=== PATIENT | male | born 1970 | race Asian ===

== ENCOUNTER 2017-12-20 17:31 | Emergency (ER) | payer MEDICARE ==
[~2017-12-20] VITALS: Ht 167.6 cm; Wt 77.1 kg
[2017-12-20 17:31] VITALS: BP 158/98
[2017-12-20] MEDS ORDERED: SEROQUEL50 MG ORAL (17:34)
[2017-12-20] MEDS ORDERED: LAMICTAL25 MG ORAL (17:49)
--- NOTE | 2017-12-20 17:51 | Emergency Room Report ---
History of Present Illness General Chief Complaint: Suicidal Source: EMS (Shabana Robb) Present Illness HPI 46 year old male presents to the emergency department with suicidal ideation. Patient reports multiple PSAs the most recent of which was last week he attempted to swallow a tampon in hopes of choking himself. Patient prior to that was hospitalized for 3 weeks after attempted overdose on Seroquel. Patient has a history of schizophrenia, bipolar and depression. Patient states he is currently on Lamictal and Seroquel. He states he has been taking his medications consistently. Patient also reports some auditory hallucinations that he describes as "annoying "and states that he is unable to make out what they're saying. Patient denies taking more than prescribed of his medications today or attempts at overdose. He denies medical complaints at this time. Denies substance use, denies alcohol use. Denies HI or delusions. Denies hx of trauma or abuse. Denies experiencing flashbacks or nightmares. (Shabana Robb) Allergies: Coded Allergies: No Known Allergies (Unverified , 12/20/17) Patient History Past Medical History: see triage record, psych hx - schizophrenia Past Surgical History: none Pertinent Family History: none Reviewed Nursing Documentation: PMH: Agreed; PSxH: Agreed (Shabana Robb) Nursing Documentation-PMH Past Medical History: No History, Except For History Of Psychiatric Problem: Yes - mood disorder and schizoprenia (Shabana Robb) Review of Systems All Other Systems: negative except mentioned in HPI (Shabana Robb) Physical Exam Vital Signs Date Time Temp Pulse Resp B/P (MAP) Pulse Ox O2 Delivery O2 Flow Rate FiO2 12/20/17 17:31 98.3 92 20 158/98 99 Room Air 98.2 Sp02 EP Interpretation: reviewed, normal General Appearance: no apparent distress, alert, GCS 15, non-toxic, other - mildly desheveled. Head: normocephalic, atraumatic Eyes: bilateral eye normal inspection, bilateral eye PERRL ENT: hearing grossly normal, normal voice Neck: full range of motion, no bony tend Respiratory: chest non-tender, lungs clear, normal breath sounds, no accessory muscle use, no wheezing, speaking full sentences Cardiovascular #1: regular rate, rhythm Gastrointestinal: normal bowel sounds, non tender, soft Rectal: deferred Musculoskeletal: back normal, gait/station normal, normal range of motion, non- tender Neurologic: alert, oriented x3, responsive, motor strength/tone normal, sensory intact, normal gait, speech normal, grossly normal Psychiatric: anxious, other - Pt. reports SI, no plan at the moment, Pt. has clear speech, thought process is not linear. he keeps resorting back to specific remarks and not always answering questions, needs redirection durring conversation often. Skin: normal color, no rash, warm/dry, well hydrated, other - skin is scaly and pt. has multiple lipomas noted on arms and the back of his neck. no evidence of infections at this time, no open wounds. Lymphatic: no adenopathy (Shabana Robb) Medical Decision Making PA Attestation Dr. Gamble is my supervising Physician whom patient management has been discussed with. (Shabana Robb) Diagnostic Impression: Primary Impression: Bipolar disorder ER Course initially pt. is anxious and restless. however cooperative. Reports he had his dose of Seroquel today already. Ddx considered but are not limited to OD, SI/HI, psychosis, UTI, intoxication Vital signs: are WNL, pt. is afebrile H&PE are most consistent with behavioral/mental health issue ORDERS: -CBC, CMP: mild hyponatremia -UDS: Negative for all -Salicylates and Acetaminophen - no acute intoxication. -Serum ETOH: negative ED INTERVENTIONS: -Sitter at Bedside - 2mg Ativan PO -50mg Benadryl PO -NS Bolus IV - PET Consult DISPOSITION: Pt. Medically Cleared, and Awaiting PET EVAL Labs Test 12/20/17 17:30 12/20/17 19:17 Urine Opiates Screen Negative (NEGATIVE) Urine Barbiturates Screen Negative (NEGATIVE) Phencyclidine (PCP) Screen Negative (NEGATIVE) Urine Amphetamines Screen Negative (NEGATIVE) Urine Benzodiazepines Screen Negative (NEGATIVE) Urine Cocaine Screen Negative (NEGATIVE) Urine Marijuana (THC) Screen Negative (NEGATIVE) White Blood Count 8.3 K/UL (4.8-10.8) Red Blood Count 4.63 M/UL (4.70-6.10) Hemoglobin 14.0 G/DL (14.2-18.0) Hematocrit 39.2 % (42.0-52.0) Mean Corpuscular Volume 85 FL (80-99) Mean Corpuscular Hemoglobin 30.2 PG (27.0-31.0) Mean Corpuscular Hemoglobin Concent 35.6 G/DL (32.0-36.0) Red Cell Distribution Width 10.2 % (11.6-14.8) Platelet Count 261 K/UL (150-450) Mean Platelet Volume 5.5 FL (6.5-10.1) Neutrophils (%) (Auto) 70.6 % (45.0-75.0) Lymphocytes (%) (Auto) 21.8 % (20.0-45.0) Monocytes (%) (Auto) 4.2 % (1.0-10.0) Eosinophils (%) (Auto) 2.1 % (0.0-3.0) Basophils (%) (Auto) 1.4 % (0.0-2.0) Sodium Level 129 MMOL/L (136-145) Potassium Level 3.2 MMOL/L (3.5-5.1) Chloride Level 96 MMOL/L (98-107) Carbon Dioxide Level 23 MMOL/L (21-32) Anion Gap 10 mmol/L (5-15) Blood Urea Nitrogen 6 mg/dL (7-18) Creatinine 0.7 MG/DL (0.55-1.30) Estimat Glomerular Filtration Rate > 60 mL/min (>60) Glucose Level 121 MG/DL (74-106) Calcium Level 8.3 MG/DL (8.5-10.1) Total Bilirubin 0.4 MG/DL (0.2-1.0) Aspartate Amino Transf (AST/SGOT) 12 U/L (15-37) Alanine Aminotransferase (ALT/SGPT) 16 U/L (12-78) Alkaline Phosphatase 70 U/L (46-116) Total Protein 7.2 G/DL (6.4-8.2) Albumin 4.1 G/DL (3.4-5.0) Globulin 3.1 g/dL Albumin/Globulin Ratio 1.3 (1.0-2.7) Salicylates Level < 0.2 ug/mL (2.8-20) Acetaminophen Level < 2 MCG/ML (10-30) Serum Alcohol < 3 mg/dL (Shabana Robb) ER Course This patient was turned over to me by Dr. Pacheco. Patient had reported previously on another shift that he had some suicidal ideation. I reassessed this patient. He denies suicidal ideation at this time. He states that he feels better and is comfortable going home. He states that if he feels that he relapses back that he will return here to the emergency department. I also offered this patient the local psychiatric resources. Patient states he does have a psychiatrist. At this time, the patient denies suicidal ideation and feels comfortable going home. The patient is not on a 5150. The patient was educated that he could return at any time or go to any of the local psychiatric facilities if he changes his mind. He indicated understanding. He is given very close return precautions and follow-up instructions. Laboratory Tests Test 12/20/17 17:30 12/20/17 19:17 Urine Opiates Screen Negative (NEGATIVE) Urine Barbiturates Screen Negative (NEGATIVE) Phencyclidine (PCP) Screen Negative (NEGATIVE) Urine Amphetamines Screen Negative (NEGATIVE) Urine Benzodiazepines Screen Negative (NEGATIVE) Urine Cocaine Screen Negative (NEGATIVE) Urine Marijuana (THC) Screen Negative (NEGATIVE) White Blood Count 8.3 K/UL (4.8-10.8) Red Blood Count 4.63 M/UL (4.70-6.10) L Hemoglobin 14.0 G/DL (14.2-18.0) L Hematocrit 39.2 % (42.0-52.0) L Mean Corpuscular Volume 85 FL (80-99) Mean Corpuscular Hemoglobin 30.2 PG (27.0-31.0) Mean Corpuscular Hemoglobin Concent 35.6 G/DL (32.0-36.0) Red Cell Distribution Width 10.2 % (11.6-14.8) L Platelet Count 261 K/UL (150-450) Mean Platelet Volume 5.5 FL (6.5-10.1) L Neutrophils (%) (Auto) 70.6 % (45.0-75.0) Lymphocytes (%) (Auto) 21.8 % (20.0-45.0) Monocytes (%) (Auto) 4.2 % (1.0-10.0) Eosinophils (%) (Auto) 2.1 % (0.0-3.0) Basophils (%) (Auto) 1.4 % (0.0-2.0) Sodium Level 129 MMOL/L (136-145) L Potassium Level 3.2 MMOL/L (3.5-5.1) L Chloride Level 96 MMOL/L (98-107) L Carbon Dioxide Level 23 MMOL/L (21-32) Anion Gap 10 mmol/L (5-15) Blood Urea Nitrogen 6 mg/dL (7-18) L Creatinine 0.7 MG/DL (0.55-1.30) Estimate Glomerular Filtration Rate > 60 mL/min (>60) Glucose Level 121 MG/DL (74-106) H Calcium Level 8.3 MG/DL (8.5-10.1) L Total Bilirubin 0.4 MG/DL (0.2-1.0) Aspartate Amino Transferase (AST) 12 U/L (15-37) L Alanine Aminotransferase (ALT) 16 U/L (12-78) Alkaline Phosphatase 70 U/L (46-116) Total Protein 7.2 G/DL (6.4-8.2) Albumin 4.1 G/DL (3.4-5.0) Globulin 3.1 g/dL Albumin/Globulin Ratio 1.3 (1.0-2.7) Salicylates Level < 0.2 ug/mL (2.8-20) L Acetaminophen Level < 2 MCG/ML (10-30) L Serum Alcohol < 3 mg/dL (Amy Vicente DO) Last Vital Signs Date Time Temp Pulse Resp B/P (MAP) Pulse Ox O2 Delivery O2 Flow Rate FiO2 12/20/17 17:31 98.3 92 20 158/98 99 Room Air 98.2 (Shabana Robb) Disposition: HOME, SELF-CARE Condition: Stable Signed Out To: Dr. Pacheco (Shabana Robb) Patient Instructions: Suicidal Feelings: How to Help Yourself Shabana Robb Dec 20, 2017 17:51 Amy Vicente [place] HERNANDEZ Dec 21, 2017 08:35
[2017-12-20] MEDS ORDERED: LORazepam 1mg tab ORAL ONE (18:15)
[2017-12-20 19:59] LABS: BASOPHILS % (AUTO) 1.4 % (0.0-2.0); EOSINOPHILS % (AUTO) 2.1 % (0.0-3.0); HEMATOCRIT 39.2 % (42.0-52.0); LYMPHOCYTES % (AUTO) 21.8 % (20.0-45.0); MEAN CORPUSCULAR VOLUME 85 FL (80-99); MONOCYTES % (AUTO) 4.2 % (1.0-10.0); NEUTROPHILS % (AUTO) 70.6 % (45.0-75.0); PLATELET COUNT 261 K/UL (150-450); RED BLOOD COUNT 4.63 M/UL (4.70-6.10); RED CELL DISTRIBUTION WIDTH 10.2 % (11.6-14.8); WHITE BLOOD COUNT 8.3 K/UL (4.8-10.8)
[2017-12-20 20:05] LABS: ANION GAP 10 mmol/L (5-15); BLOOD UREA NITROGEN 6 mg/dL (7-18); CALCIUM 8.3 MG/DL (8.5-10.1); CARBON DIOXIDE 23 MMOL/L (21-32); CHLORIDE 96 MMOL/L (98-107); CREATININE 0.7 MG/DL (0.55-1.30); POTASSIUM 3.2 MMOL/L (3.5-5.1); SODIUM 129 MMOL/L (136-145)
[2017-12-20 20:09] LABS: ALANINE AMINOTRANSFERASE 16 U/L (12-78); ALBUMIN 4.1 G/DL (3.4-5.0); ALBUMIN/GLOBULIN RATIO 1.3 (1.0-2.7); ALKALINE PHOSPHATASE 70 U/L (46-116); ASPARTATE AMINO TRANSFERASE 12 U/L (15-37); BILIRUBIN,TOTAL 0.4 MG/DL (0.2-1.0)
[2017-12-20 21:15] VITALS: BP 142/76
[2017-12-20 23:58] VITALS: BP 132/78
[2017-12-21 03:30] VITALS: BP 124/74
[2017-12-21 06:23] VITALS: BP 119/77
[2017-12-21 07:25] VITALS: BP 145/91
[2017-12-21 08:51] VITALS: BP 133/90
== END 2017-12-21 08:52 | disposition home or self-care (01) ==
LOC: EDBD 17:31 → EMR 18:35
DX: F31.9 Bipolar disorder, unspecified (principal)
CPT/HCPCS: 36415; 80053; 80307; 85025; 96360; 99284; G0480; 80329

== ENCOUNTER 2019-08-05 17:20 | Emergency (ER) | payer MEDICARE, OTHER ==
[~2019-08-05] VITALS: Ht 160 cm; Wt 70.3 kg
[~2019-08-05 17:20] MED LIST: LAMICTAL25 MG ORAL; SEROQUEL50 MG ORAL
[2019-08-05] MEDS ORDERED: Haloperidol 5mg/ml Inj ONE (17:42)
[2019-08-05] MEDS ORDERED: Haloperidol 5mg/ml Inj IM ONE (17:45)
[2019-08-05] MEDS ORDERED: DiphenhydrAMINE 50mg/ml Inj IVP ONE (17:45)
[2019-08-05] MEDS ORDERED: LORazepam Inj 2mg/ml 1ml IV ONE (17:45)
[2019-08-05 17:55] VITALS: BP 140/84
--- NOTE | 2019-08-05 17:55 | Emergency Room Report ---
History of Present Illness General Chief Complaint: Behavioral Complaint Source: Patient Present Illness HPI Patient is a 48-year-old male history of psychiatric disorder who presents to the ER stating that he is having auditory hallucinations telling him to kill himself. Patient states that he has a history of suicidal ideation and he tried to kill himself by taking prescription medications and overdosing. Patient states he was recently discharged from a psychiatric facility but cannot tell me which 1. He states that he went to [facility] to get his medications and that they did not give it to him. Patient states that he needs his psych meds. Patient denies fever or chills. He did complain of some nausea and vomiting. He denies any abdominal pain. Allergies: Coded Allergies: No Known Allergies (Unverified , 12/20/17) COVID-19 Screening Contact w/high risk pt: No Recent Travel to affected area: No Experienced COVID-19 symptoms?: No COVID-19 Testing performed TIMBER TREATMENT PLANT OPERATOR: No Patient History Reviewed Nursing Documentation: PMH: Agreed; PSxH: Agreed Nursing Documentation-PMH Past Medical History: No History, Except For Review of Systems All Other Systems: negative except mentioned in HPI Physical Exam Vital Signs Date Time Temp Pulse Resp B/P (MAP) Pulse Ox O2 Delivery O2 Flow Rate FiO2 08/05/19 17:26 98.1 86 16 162/100 (120) 99 Room Air Sp02 EP Interpretation: reviewed, normal General Appearance: alert, GCS 15, non-toxic, other - aggitated Head: normocephalic, atraumatic Eyes: bilateral eye normal inspection, bilateral eye PERRL ENT: hearing grossly normal, normal pharynx, no angioedema, normal voice Neck: full range of motion, supple/symm/no masses Respiratory: chest non-tender, lungs clear, normal breath sounds, speaking full sentences Cardiovascular #1: regular rate, rhythm, no edema Gastrointestinal: normal bowel sounds, non tender, soft, non-distended, no guarding, no rebound Rectal: deferred Genitourinary: no CVA tenderness Musculoskeletal: back normal, normal range of motion, calf tenderness, gait/ station normal, non-tender Neurologic: strategic debriefing specialist III-XII nml as tested Psychiatric: other - Complains of hallucinations and is suicidal with a plan to overdose Skin: no rash Lymphatic: no adenopathy Medical Decision Making Diagnostic Impression: Primary Impression: Suicidal ideation Additional Impressions: Hallucinations Hyponatremia ER Course Patient was agitated and anxious. Patient was given sedation to able to continue his ER work-up and prevent him from interfering with his medical care. Patient's sodium level is 124. His urine drug screen is pending. Patient will require psychiatric evaluation. Laboratory Tests Test 08/05/19 17:45 08/05/19 21:20 White Blood Count 11.2 K/UL (4.8-10.8) H Red Blood Count 4.97 M/UL (4.70-6.10) Hemoglobin 14.7 G/DL (14.2-18.0) Hematocrit 43.0 % (42.0-52.0) Mean Corpuscular Volume 86 FL (80-99) Mean Corpuscular Hemoglobin 29.5 PG (27.0-31.0) Mean Corpuscular Hemoglobin Concent 34.1 G/DL (32.0-36.0) Red Cell Distribution Width 11.2 % (11.6-14.8) L Platelet Count 329 K/UL (150-450) Mean Platelet Volume 5.9 FL (6.5-10.1) L Neutrophils (%) (Auto) 76.8 % (45.0-75.0) H Lymphocytes (%) (Auto) 15.1 % (20.0-45.0) L Monocytes (%) (Auto) 7.0 % (1.0-10.0) Eosinophils (%) (Auto) 0.4 % (0.0-3.0) Basophils (%) (Auto) 0.7 % (0.0-2.0) Sodium Level 124 MMOL/L (136-145) L Potassium Level 3.5 MMOL/L (3.5-5.1) Chloride Level 90 MMOL/L (98-107) L Carbon Dioxide Level 21 MMOL/L (21-32) Anion Gap 13 mmol/L (5-15) Blood Urea Nitrogen 6 mg/dL (7-18) L Creatinine 0.9 MG/DL (0.55-1.30) Estimated Glomerular Filtration Rate > 60 mL/min (>60) Glucose Level 102 MG/DL (74-106) Calcium Level 8.5 MG/DL (8.5-10.1) Total Bilirubin 1.3 MG/DL (0.2-1.0) H Direct Bilirubin 0.3 MG/DL (0.0-0.3) Aspartate Amino Transferase (AST) 23 U/L (15-37) Alanine Aminotransferase (ALT) 26 U/L (12-78) Alkaline Phosphatase 67 U/L (46-116) Total Protein 7.7 G/DL (6.4-8.2) Albumin 4.5 G/DL (3.4-5.0) Globulin 3.2 g/dL Albumin/Globulin Ratio 1.4 (1.0-2.7) Salicylates Level < 0.2 ug/mL (2.8-20) L Acetaminophen Level < 2 MCG/ML (10-30) L Serum Alcohol < 3 mg/dL Urine Opiates Screen Pending Urine Barbiturates Screen Pending Phencyclidine (PCP) Screen Pending Urine Amphetamines Screen Pending Urine Benzodiazepines Screen Pending Urine Cocaine Screen Pending Urine Marijuana (THC) Screen Pending Last Vital Signs Date Time Temp Pulse Resp B/P (MAP) Pulse Ox O2 Delivery O2 Flow Rate FiO2 08/05/19 17:26 98.1 86 16 162/100 (120) 99 Room Air Signed Out To: Dr. Pacheco at 2200. Fidelia Blankenship M.D. August 05, 2019 17:55
[2019-08-05 18:57] LABS: ANION GAP 13 mmol/L (5-15); BLOOD UREA NITROGEN 6 mg/dL (7-18); CALCIUM 8.5 MG/DL (8.5-10.1); CARBON DIOXIDE 21 MMOL/L (21-32); CHLORIDE 90 MMOL/L (98-107); CREATININE 0.9 MG/DL (0.55-1.30); POTASSIUM 3.5 MMOL/L (3.5-5.1); SODIUM 124 MMOL/L (136-145)
[2019-08-05 18:59] VITALS: BP 119/77
[2019-08-05 19:06] LABS: BASOPHILS % (AUTO) 0.7 % (0.0-2.0); EOSINOPHILS % (AUTO) 0.4 % (0.0-3.0); HEMOGLOBIN 14.7 G/DL (14.2-18.0); LYMPHOCYTES % (AUTO) 15.1 % (20.0-45.0); MEAN CORPUSCULAR VOLUME 86 FL (80-99); NEUTROPHILS % (AUTO) 76.8 % (45.0-75.0); PLATELET COUNT 329 K/UL (150-450); RED BLOOD COUNT 4.97 M/UL (4.70-6.10); RED CELL DISTRIBUTION WIDTH 11.2 % (11.6-14.8); WHITE BLOOD COUNT 11.2 K/UL (4.8-10.8)
[2019-08-05 19:07] LABS: ALANINE AMINOTRANSFERASE 26 U/L (12-78); ALBUMIN 4.5 G/DL (3.4-5.0); ALBUMIN/GLOBULIN RATIO 1.4 (1.0-2.7); ALKALINE PHOSPHATASE 67 U/L (46-116); ASPARTATE AMINO TRANSFERASE 23 U/L (15-37); BILIRUBIN,TOTAL 1.3 MG/DL (0.2-1.0)
[2019-08-05 19:19] LABS: BILIRUBIN,DIRECT 0.3 MG/DL (0.0-0.3)
[2019-08-05 21:00] VITALS: BP 148/69
[2019-08-06] VITALS: BP 122/73
[2019-08-06 03:00] VITALS: BP 119/68
[2019-08-06 06:05] VITALS: BP 120/72
[2019-08-06 08:00] VITALS: BP 132/75
[2019-08-06 16:08] VITALS: BP 124/75
[2019-08-06] MEDS ORDERED: LORazepam 1mg tab ORAL ONE (16:15)
[2019-08-06 19:10] VITALS: BP 135/76
== END 2019-08-06 19:10 ==
LOC: EMR 17:45
DX: R45.851 Suicidal ideations (principal); E87.1 Hypo-osmolality and hyponatremia; R11.2 Nausea with vomiting, unspecified; R44.0 Auditory hallucinations
CPT/HCPCS: 36415; 80053; 80307; 82248; 85025; 96361; 96372; 96374; 96375; 99284; G0480; J1200; J1630; J7030

== ENCOUNTER 2019-08-29 20:46 | Emergency (ER) | payer OTHER ==
[~2019-08-29] VITALS: Ht 160 cm; Wt 70.3 kg
[2019-08-29 20:58] VITALS: BP 140/98
--- NOTE | 2019-08-29 20:58 | NUR ---
ED Nurse Note: PT walked in to ED for C/O SI with plan to overdose with medication. pt also reports hearing voices telling to comit suicide.
--- NOTE | 2019-08-29 21:00 | NUR ---
ED Nurse Note: belongings placed in locker #3
--- NOTE | 2019-08-29 21:20 | NUR ---
ED Nurse Note: blood sample collected and sent to lab
[2019-08-29 21:29] LABS: BASOPHILS % (AUTO) 0.8 % (0.0-2.0); EOSINOPHILS % (AUTO) 1.9 % (0.0-3.0); HEMATOCRIT 44.6 % (42.0-52.0); HEMOGLOBIN 15.1 G/DL (14.2-18.0); LYMPHOCYTES % (AUTO) 19.7 % (20.0-45.0); MEAN CORPUSCULAR VOLUME 88 FL (80-99); MONOCYTES % (AUTO) 9.5 % (1.0-10.0); NEUTROPHILS % (AUTO) 68.2 % (45.0-75.0); PLATELET COUNT 356 K/UL (150-450); RED BLOOD COUNT 5.09 M/UL (4.70-6.10); WHITE BLOOD COUNT 7.3 K/UL (4.8-10.8)
--- NOTE | 2019-08-29 21:30 | NUR ---
ED Nurse Note: pt is unable to provide urine at this time.
[2019-08-29 21:42] LABS: ANION GAP 8 mmol/L (5-15); BLOOD UREA NITROGEN 8 mg/dL (7-18); CALCIUM 7.8 MG/DL (8.5-10.1); CARBON DIOXIDE 25 MMOL/L (21-32); CHLORIDE 92 MMOL/L (98-107); CREATININE 0.8 MG/DL (0.55-1.30); POTASSIUM 4.1 MMOL/L (3.5-5.1); SODIUM 125 MMOL/L (136-145)
[2019-08-29 21:46] LABS: ALANINE AMINOTRANSFERASE 16 U/L (12-78); ALBUMIN 4.1 G/DL (3.4-5.0); ALBUMIN/GLOBULIN RATIO 1.2 (1.0-2.7); ALKALINE PHOSPHATASE 65 U/L (46-116); ASPARTATE AMINO TRANSFERASE 12 U/L (15-37); BILIRUBIN,TOTAL 0.9 MG/DL (0.2-1.0)
--- NOTE | 2019-08-29 21:52 | Emergency Room Report ---
History of Present Illness General Chief Complaint: Behavioral Complaint Source: Patient (Cliff Truong MD) Present Illness HPI Disclaimer: Please note that this report is being documented using DRAGON technology. This can lead to erroneous entry secondary to incorrect interpretation by the dictating instrument. HPI: 40-year-old male history of bipolar disorder presents for evaluation of auditory hallucinations suicidal ideation. The patient states he "feels suicidal" after being off Seroquel for approximately 5 days. He states he ran off out to her recent hospitalization. Has not attempted to harm himself yet. He has no plan for us to how he would commit suicide. He states he is hearing voices telling him to hurt himself. He told triage nurse that he would take an overdose of medications but he currently does not have medications. He denies any other complaints at this time. He has noted to be coughing but patient denies a cough prior to entering the ER. States his throat is dry. Denies fever, chills, vomiting, diarrhea. PMH: Bipolar disorder PSH: Patient denied Allergies: Denied Social Hx: Denies drug or alcohol use (Cliff Truong MD) Allergies: Coded Allergies: No Known Allergies (Unverified , 12/20/17) COVID-19 Screening Contact w/high risk pt: No Recent Travel to affected area: No Experienced COVID-19 symptoms?: No COVID-19 Testing performed TERRITORY BUSINESS MANAGER: No (Cliff Truong MD) Nursing Documentation-PM History Of Psychiatric Problem: Yes - schizoprenia (Cliff Truong MD) Review of Systems All Other Systems: negative except mentioned in HPI (Cliff Truong MD) Physical Exam Vital Signs Date Time Temp Pulse Resp B/P (MAP) Pulse Ox O2 Delivery O2 Flow Rate FiO2 08/29/19 20:53 98.1 75 18 140/98 (112) 99 Room Air General: Awake and alert, no acute distress HEENT: NC/AT. EOMI. Cardiovascular: RRR. S1 and S2 normal. No murmur appreciated Resp: Normal work of breathing. Occasional cough Abdomen: Abdomen is soft, nondistended. Nontender Skin: Intact. No abrasions, laceration or rash over the exposed skin MSK: Normal tone and bulk. Moving all extremities. No obvious deformity. Neuro: Awake and alert. Mentating appropriately. Reports auditory hallucinations. Does not appear to be responding to internal stimuli at this time. (Cliff Truong MD) Medical Decision Making Diagnostic Impression: Primary Impression: Auditory hallucinations ER Course 48-year-old male presents with suicidal ideation auditory hallucination. Patient is been off Seroquel for 5 days. He is not on a legal hold at this time and presents voluntarily. Will obtain blood work to screen for metabolic infectious process and give the patient a dose of Seroquel. Will be monitored in the ED. Signed out to oncoming physician pending lab results and final disposition (Cliff Truong MD) ER Course Patient signed out to me. Patient said he has been off of his Seroquel for 5 days. He is no longer suicidal here. He said he felt better. Wants to go home. Will discharge home. This patient is a chronic risk of self injury due to poor impulse control, limited coping skills, and judgment intermittently impaired by intoxication. I believe that the available clinical evidence to suggest that these characteristics derived primarily from personality disorder and are likely very stable over time. Hospitalization would likely attenuate risk of self-harm only during longterm period, without lasting risk reduction. Serious self-harm , while possible, would likely be inadvertent, and because of impulsivity, and foreseeable. For these reasons, I do not believe hospitalization would provide meaningful reduction in risk of self-harm. (Tye Carrion MD) Last Vital Signs Date Time Temp Pulse Resp B/P (MAP) Pulse Ox O2 Delivery O2 Flow Rate FiO2 08/29/19 20:58 98.1 81 18 140/98 99 Room Air (Cliff Truong MD) Status: improved (Tye Carrion MD) Disposition: HOME, SELF-CARE Condition: Stable Scripts Quetiapine Fumarate* (SEROQUEL*) 100 Mg Tablet 100 MG ORAL DAILY, #30 TAB Prov: Tye Carrion MD 08/29/19 Referrals: NOT CHOSEN [facility]/,REFERRING (PCP) Patient Instructions: Self-Destructive Behavior Additional Instructions: Follow-up with mental health within a week. Return if symptoms worsen. Cliff Truong MD Aug 29, 2019 21:52 Tye Carrion MD Aug 29, 2019 22:34
--- NOTE | 2019-08-29 22:24 | NUR ---
ED Nurse Note: pt ambulated to restroom to provide urine sample
[2019-08-29] MEDS ORDERED: SEROQUEL100 MG ORAL (22:33)
--- NOTE | 2019-08-29 22:37 | NUR ---
ED Nurse Note: ERMD at bedside
[2019-08-29 22:43] VITALS: BP 137/92
--- NOTE | 2019-08-29 22:43 | NUR ---
ER DISCHARGE NOTE: Patient is cleared to be discharged home per ERMD, pt is aox4, 99% on room air, with stable vital signs. pt was given dc and prescription instructions, pt was able to verbalize understanding, pt id band and iv site removed without complications. pt is able to ambulate with steady gait. pt took all belongings.
--- NOTE | 2019-08-30 10:50 | Diagnostic Imaging Report ---
Procedure: XRAY Chest 1v Reason for study: Reason For Exam: COUGH Comparison films: None. FINDINGS: A single one view chest is obtained. Vascularity is normal. The lung delvalle are clear bilaterally. Cardiac and mediastinal silhouette are within normal limits. CP angles are sharp. The bony thorax appear unremarkable. IMPRESSION: NO ACUTE CARDIOPULMONARY DISEASE.
== END 2019-08-29 22:43 | disposition home or self-care (01) ==
LOC: EMR 21:30
DX: R44.0 Auditory hallucinations (principal); R45.851 Suicidal ideations; F20.9 Schizophrenia, unspecified; F31.9 Bipolar disorder, unspecified
CPT/HCPCS: 36415; 71045; 80053; 80307; 85025; 99284; G0480

== ENCOUNTER 2019-09-06 21:39 | Emergency (ER) | payer OTHER ==
[~2019-09-06] VITALS: Ht 160 cm; Wt 70.3 kg
[~2019-09-06 21:39] MED LIST changes: +SEROQUEL100 MG ORAL
[2019-09-06 21:50] VITALS: BP 130/85
--- NOTE | 2019-09-06 21:50 | NUR ---
ED Nurse Note: Pt walked into ED for c/o suicidal ideations. Pt reports a plan to overdose on his prescribed medication of Seroquel. Pt notes he has been suicidal for a few days now but has not carried out his plan and has only been taking his medication as prescribed. Pt has hx of recent psych hospitalization a few months ago and is requesting psych hospital placement. Pt is not on a 5150 psych hold at this time. Pt is aaox4, breathing is normal and unlabored. No cough, SOB or fever noted. Pt is calm and cooperative with staff. Pt does not display aggression or impulsive behavior at this time. Pt belongings taken from pt to ensure safety. Will continue to monitor, RN bedside.
--- NOTE | 2019-09-06 22:00 | NUR ---
ED Nurse Note: Pt has 4 bags locked in locker 3. Addendum: 09/06/19 at 2310 by VALDEMAR LOCKER #2
--- NOTE | 2019-09-06 22:19 | Emergency Room Report ---
History of Present Illness General Chief Complaint: Behavioral Complaint Source: Patient Present Illness HPI Patient is a 48-year-old male who presents after increased reported suicidal thoughts. Patient states that he is currently taking Seroquel and is recently hospitalized in psychiatric facility. He is requesting placement to psychiatric facility. Reports having onset of symptoms approximate 3 days ago. Denies any recent medication ingestions. Denies any cough or fever. Had been otherwise well. Allergies: Coded Allergies: No Known Allergies (Unverified , 12/20/17) COVID-19 Screening COVID-19 risk:Contact w/high r: No COVID-19 risk:Travel to affect: No Has patient experienced butler: No COVID-19 Testing performed [employer]: No Patient History Past Medical History: see triage record Reviewed Nursing Documentation: PMH: Agreed; PSxH: Agreed Nursing Documentation-PMH History Of Psychiatric Problem: Yes Review of Systems All Other Systems: negative except mentioned in HPI Physical Exam Vital Signs Date Time Temp Pulse Resp B/P (MAP) Pulse Ox O2 Delivery O2 Flow Rate FiO2 09/06/19 21:46 98.1 88 18 98 Room Air Sp02 EP Interpretation: reviewed, normal General Appearance: alert/responsive, no apparent distress, GCS 15, non-toxic Head: atraumatic Eyes: PERRL, lids + conjunctiva normal ENT: hearing intact, no angioedema Neck: supple/symm/no masses, no meningismus Respiratory: effort normal, no wheezing, chest symmetrical Cardiovascular: regular rate, rhythm, no edema Cardiovascular #2: 2+ carotid (R), 2+ carotid (L), 2+ dorsalis pedis (R), 2+ dorsalis pedis (L) Gastrointestinal: non-tender, no mass, non-distended, no rebound/guarding, normal bowel sounds Musculoskeletal: gait & station normal, normal ROM, strength & tone normal, non -tender Neurologic: normal inspection, CN II-XII intact, oriented x3, sensory intact, normal speech Skin: well hydrated, other - abrasion to both legs near achilles Lymphatic: normal inspection Medical Decision Making Diagnostic Impression: Primary Impression: Suicidal ideations Additional Impression: Psychosis ER Course Patient presented for suicidal thoughts. Differential diagnosis includes not limited to substance abuse, alcohol intoxication, depression, psychosis among others. Because of complexity of patient's case laboratory tests were ordered. Patient was reportedly having suicidal thoughts. He denies any recent substance use. Patient was medically cleared for psychiatric placement. He has no coronavirus symptoms. Patient medically cleared for psychiatric evaluation. Patient was accepted for voluntary placement in a psychiatric facility and will be transferred for higher level of care. Labs Test 09/06/19 22:22 09/06/19 22:42 Urine Color Pale yellow Urine Appearance Clear Urine pH 6 (4.5-8.0) Urine Specific [place] 1.010 (1.005-1.035) Urine Protein Negative (NEGATIVE) Urine Glucose (UA) Negative (NEGATIVE) Urine Ketones Negative (NEGATIVE) Urine Blood Negative (NEGATIVE) Urine Nitrite Negative (NEGATIVE) Urine Bilirubin Negative (NEGATIVE) Urine Urobilinogen Normal MG/DL (0.0-1.0) Urine Leukocyte Esterase Negative (NEGATIVE) Urine Opiates Screen Negative (NEGATIVE) Urine Barbiturates Screen Negative (NEGATIVE) Phencyclidine (PCP) Screen Negative (NEGATIVE) Urine Amphetamines Screen Negative (NEGATIVE) Urine Benzodiazepines Screen Negative (NEGATIVE) Urine Cocaine Screen Negative (NEGATIVE) Urine Marijuana (THC) Screen Negative (NEGATIVE) White Blood Count 6.2 K/UL (4.8-10.8) Red Blood Count 4.79 M/UL (4.70-6.10) Hemoglobin 14.1 G/DL (14.2-18.0) Hematocrit 42.1 % (42.0-52.0) Mean Corpuscular Volume 88 FL (80-99) Mean Corpuscular Hemoglobin 29.4 PG (27.0-31.0) Mean Corpuscular Hemoglobin Concent 33.5 G/DL (32.0-36.0) Red Cell Distribution Width 11.8 % (11.6-14.8) Platelet Count 262 K/UL (150-450) Mean Platelet Volume 6.0 FL (6.5-10.1) Neutrophils (%) (Auto) 54.3 % (45.0-75.0) Lymphocytes (%) (Auto) 28.3 % (20.0-45.0) Monocytes (%) (Auto) 9.9 % (1.0-10.0) Eosinophils (%) (Auto) 6.4 % (0.0-3.0) Basophils (%) (Auto) 1.3 % (0.0-2.0) Sodium Level 137 MMOL/L (136-145) Potassium Level 3.7 MMOL/L (3.5-5.1) Chloride Level 102 MMOL/L (98-107) Carbon Dioxide Level 26 MMOL/L (21-32) Anion Gap 9 mmol/L (5-15) Blood Urea Nitrogen 10 mg/dL (7-18) Creatinine 1.0 MG/DL (0.55-1.30) Estimat Glomerular Filtration Rate > 60 mL/min (>60) Glucose Level 89 MG/DL (74-106) Calcium Level 8.0 MG/DL (8.5-10.1) Total Bilirubin 0.4 MG/DL (0.2-1.0) Aspartate Amino Transf (AST/SGOT) 12 U/L (15-37) Alanine Aminotransferase (ALT/SGPT) 15 U/L (12-78) Alkaline Phosphatase 58 U/L (46-116) Total Protein 6.7 G/DL (6.4-8.2) Albumin 4.0 G/DL (3.4-5.0) Globulin 2.7 g/dL Albumin/Globulin Ratio 1.5 (1.0-2.7) Salicylates Level 1.6 ug/mL (2.8-20) Serum Alcohol < 3 mg/dL Last Vital Signs Date Time Temp Pulse Resp B/P (MAP) Pulse Ox O2 Delivery O2 Flow Rate FiO2 09/06/19 21:46 98.1 88 18 98 Room Air Status: improved Disposition: PSYCH HOSP/UNIT Condition: Stable Kapil Fernando MD Sep 06, 2019 22:19
[2019-09-06 22:42] LABS: APPEARANCE,URINE CLEAR; BILIRUBIN, URINE NEGATIVE (NEGATIVE); COLOR,URINE PALE YELLOW; GLUCOSE, URINE (UA) NEGATIVE (NEGATIVE); KETONES,URINE NEGATIVE (NEGATIVE); LEUKOCYTE ESTERASE ,URINE NEGATIVE (NEGATIVE); NITRITE,URINE NEGATIVE (NEGATIVE); PH,URINE 6 (4.5-8.0); PROTEIN,URINE NEGATIVE (NEGATIVE); UROBILINOGEN,URINE NORMAL MG/DL (0.0-1.0)
[2019-09-06 23:06] LABS: BASOPHILS % (AUTO) 1.3 % (0.0-2.0); EOSINOPHILS % (AUTO) 6.4 % (0.0-3.0); HEMATOCRIT 42.1 % (42.0-52.0); HEMOGLOBIN 14.1 G/DL (14.2-18.0); LYMPHOCYTES % (AUTO) 28.3 % (20.0-45.0); MEAN CORPUSCULAR VOLUME 88 FL (80-99); MONOCYTES % (AUTO) 9.9 % (1.0-10.0); NEUTROPHILS % (AUTO) 54.3 % (45.0-75.0); PLATELET COUNT 262 K/UL (150-450); RED BLOOD COUNT 4.79 M/UL (4.70-6.10); RED CELL DISTRIBUTION WIDTH 11.8 % (11.6-14.8); WHITE BLOOD COUNT 6.2 K/UL (4.8-10.8)
[2019-09-06 23:19] LABS: ANION GAP 9 mmol/L (5-15); BLOOD UREA NITROGEN 10 mg/dL (7-18); CARBON DIOXIDE 26 MMOL/L (21-32); CHLORIDE 102 MMOL/L (98-107); POTASSIUM 3.7 MMOL/L (3.5-5.1); SODIUM 137 MMOL/L (136-145)
--- NOTE | 2019-09-06 23:20 | NUR ---
ED Nurse Note: Pt cooperative with COVID swab. Pt is otherwise resting in bed, NAD. Safety measures in place, RN bedside.
[2019-09-06 23:22] LABS: ALANINE AMINOTRANSFERASE 15 U/L (12-78); ALBUMIN/GLOBULIN RATIO 1.5 (1.0-2.7); ALKALINE PHOSPHATASE 58 U/L (46-116); ASPARTATE AMINO TRANSFERASE 12 U/L (15-37); BILIRUBIN,TOTAL 0.4 MG/DL (0.2-1.0)
[2019-09-07 00:10] VITALS: BP 123/79
--- NOTE | 2019-09-07 00:45 | NUR ---
ED Nurse Note: Spoke with AMNA Boss from [facility] and gave report.
--- NOTE | 2019-09-07 02:30 | NUR ---
ED Nurse Note: Pt is moving around in bed, provided with blanket. NAD. Pt is calm and cooperative. Safety measures in place, will continue to monitor. RN bedside.
[2019-09-07 02:45] VITALS: BP 120/85
--- NOTE | 2019-09-07 04:15 | NUR ---
ED Nurse Note: Pt is sleeping at this time. NAD. Suicide precuations in place, willl continue to monitor.
[2019-09-07 05:20] VITALS: BP 127/85
--- NOTE | 2019-09-07 05:20 | NUR ---
ED Nurse Note: Pt is calm and cooperative, resting in bed. Vital signs remain stable, see flow sheet. Pt is aware of transfer to [facility] in [place]. NAD noted.
--- NOTE | 2019-09-07 07:05 | NUR ---
HAND-OFF: Report given to AMNA Neff. Awaiting on transport at this time.
[2019-09-07 07:10] VITALS: BP 131/82
--- NOTE | 2019-09-07 07:12 | NUR ---
ED Nurse Note: Report received from AMNA Encinas. Pt resting in bed with no signs of distress. A+Ox4. Pt awaiting transport to psych facility.
--- NOTE | 2019-09-07 08:09 | NUR ---
ED Nurse Note: [facility] @ bedside to transport patient. VSS as documented. Report given to ambulance personnel
[2019-09-07 08:15] VITALS: BP 142/88
--- NOTE | 2019-09-07 08:15 | NUR ---
ER DISCHARGE NOTE: Patient is cleared to be discharged per ERMD, pt is aox4, on room air, with stable vital signs as documented. pt id band removed. Pt does not have IV access. pt is able to ambulate with steady gait. All belongings given to ambulance personnel. Pt discharged safely jim frazier en route to [facility] in [place].
== END 2019-09-07 08:15 ==
LOC: EMR 22:18
DX: R45.851 Suicidal ideations (principal); F29 Unspecified psychosis not due to a substance or known physiological condition; S80.812A Abrasion, left lower leg, initial encounter; S80.811A Abrasion, right lower leg, initial encounter; X58.XXXA Exposure to other specified factors, initial encounter; Y92.9 Unspecified place or not applicable
CPT/HCPCS: 36415; 80053; 80307; 81003; 85025; 99284; G0480; U0002